=== PATIENT | female | born 1960 | race Hispanic/Latino ===

== ENCOUNTER → 2018-02-03 | Outpatient (CLI) | payer MEDICAID ==
[~2018-02-03] MED LIST: CARB200T6 PO; CEPH500B PO; ESOM40CA PO; HUMLIS7525 SQ; HYDR-4060 PO; LISI1TAB11 PO; PRAV10TA39 PO; SULF1TAB42 PO
== END | disposition home or self-care (01) ==
LOC: RAH 10:49
PROVIDERS: ATTEND Family Medicine
DX: R60.0 Localized edema (principal)
CPT/HCPCS: 93971

== ENCOUNTER → 2018-11-30 | Outpatient (CLI) | payer MEDICAID ==
[~2018-11-30] MED LIST changes: -LISI1TAB11 PO; +LISI1TAB28 PO
== END | disposition home or self-care (01) ==
LOC: OIH 07:39
PROVIDERS: ATTEND Family Medicine
DX: M19.012 Primary osteoarthritis, left shoulder (principal)
CPT/HCPCS: 73030